=== PATIENT | female | born 1970 ===

== ENCOUNTER 2018-08-27 09:32 | Outpatient (CLI) | payer OTHER | END 2018-08-27 09:33 | disposition home or self-care (01) | LOC: C.LAB 09:32 | DX: D55.1 Anemia due to other disorders of glutathione metabolism (principal); D64.9 Anemia, unspecified; D50.0 Iron deficiency anemia secondary to blood loss (chronic); E55.9 Vitamin D deficiency, unspecified; E13.9 Other specified diabetes mellitus without complications; R19.5 Other fecal abnormalities; Z13.29 Encounter for screening for other suspected endocrine disorder; R39.9 Unspecified symptoms and signs involving the genitourinary system; E78.49 Other hyperlipidemia ==

== ENCOUNTER 2018-09-03 13:58 | Outpatient (CLI) | payer OTHER | END 2018-09-03 13:59 | disposition home or self-care (01) | LOC: C.MAMMO 13:58 | DX: Z12.31 Encounter for screening mammogram for malignant neoplasm of breast (principal) ==

== ENCOUNTER 2018-10-01 14:40 | Outpatient (CLI) | payer OTHER | END 2018-10-01 14:41 | disposition home or self-care (01) | LOC: C.MAMMO 14:40 | DX: R92.8 Other abnormal and inconclusive findings on diagnostic imaging of breast (principal) ==

== ENCOUNTER 2019-01-07 13:35 | Outpatient (CLI) | payer OTHER | END 2019-01-07 13:36 | disposition home or self-care (01) | LOC: C.USIC 13:36 | DX: E03.9 Hypothyroidism, unspecified (principal) ==